=== PATIENT | female | born 1980 | race Caucasian/White ===

== ENCOUNTER 2021-07-03 06:32 | Day surgery (SDC) | payer MEDICAID ==
[~2021-07-03] VITALS: Ht 170.2 cm; Wt 45.8 kg
[2021-07-03 07:01] LABS: HCG,QUAL RESULT NEGATIVE (NEGATIVE)
[2021-07-03] MEDS ORDERED: SIMETHICONE 40 MG/0.6 ML ML ONE (07:49)
[2021-07-03] MEDS ORDERED: fentaNYL CITRATE/PF 100 MCG/2 ML AMP ONE ×2 (07:49→08:58)
[2021-07-03] MEDS ORDERED: MIDAZOLAM HCL 5 MG/5 ML VIAL ONE ×2 (07:49→08:59)
[2021-07-03] MEDS ORDERED: ONDANSETRON HCL 4 MG/2 ML VIAL ONE (08:23)
[2021-07-03] MEDS ORDERED: DIPHENHYDRAMINE INJ 50 MG/ML VIAL ONE (08:30)
[2021-07-03] MEDS ORDERED: LIDOCAINE 2% JELLY UROJECT 10 ML MM ONE (08:58)
[2021-07-03 16:18] VITALS: BP_SYST 130
== END 2021-07-03 11:15 | disposition home or self-care (01) ==
LOC: SDS 06:32 → SMU 06:34 → SDS 11:15
PROVIDERS: ATTEND Internal Medicine
DX: R63.4 Abnormal weight loss (principal); R10.13 Epigastric pain; K29.50 Unspecified chronic gastritis without bleeding; K63.5 Polyp of colon; J45.909 Unspecified asthma, uncomplicated; M79.7 Fibromyalgia; Z88.0 Allergy status to penicillin; Z88.1 Allergy status to other antibiotic agents; Z88.8 Allergy status to other drugs, medicaments and biological substances; Z79.899 Other long term (current) drug therapy; Z20.822 Contact with and (suspected) exposure to COVID-19
CPT/HCPCS: 36415 ×2; 43239; 45380; 45385; 84703; 87081; 87426; 87635; 88305; 88312; 88313; 99152; 99153; G0378; J1200; J2250; J2405; J3010; U0003